=== PATIENT | male | born 1990 | race Caucasian/White ===

== ENCOUNTER 2017-04-25 14:09 | Emergency (ER) | payer MEDICAID, OTHER ==
[2017-04-25 14:15] VITALS: BP 137/87; PULSE 78; RESP 18; TEMP 98.6; O2SAT 98
--- NOTE | 2017-04-25 14:42 | ED PDOC ---
HPI: Male Pain Time Seen by Provider: 04/25/17 14:18 Chief Complaint (Nursing): Male Genitourinary Chief Complaint (Provider): Male Genitourinary History Per: Patient History/Exam Limitations: no limitations Onset/Duration Of Symptoms: Intermittent Episodes Additional Complaint(s): Sanjay Jordan is a 26 year old male, with no past medical history, who presents to the ED for the evaluation of intermittent right testicular pain ongoing for the past 4 years worsening for the past 3 days. Denies any dysuria, discharge, abdominal pain, or trauma. PMD: none provided Past Medical History Reviewed: Historical Data, Nursing Documentation, Vital Signs Vital Signs: Last Vital Signs Temp 98.6 F 04/25/17 14:13 Pulse 78 04/25/17 14:13 Resp 18 04/25/17 14:13 BP 137/87 04/25/17 14:13 Pulse Ox 98 04/25/17 14:13 - Medical History PMH: No Chronic Diseases - Surgical History Surgical History: No Surg Hx - Family History Family History: States: Unknown Family Hx - Allergies Allergies/Adverse Reactions: Allergies Allergy/AdvReac Type Severity Reaction Status Date / Time white chocolate Allergy ANGIOEDEMA Uncoded 04/25/17 14:16 Review of Systems ROS Statement: Except As Marked, All Systems Reviewed And Found Negative Gastrointestinal: Negative for: Abdominal Pain Genitourinary Male: Negative for: Dysuria, Penile Discharge, Other (trauma) Physical Exam - Reviewed Nursing Documentation Reviewed: Yes Vital Signs Reviewed: Yes - Physical Exam Appears: Positive for: Well, Non-toxic, No Acute Distress Head Exam: Positive for: ATRAUMATIC, NORMAL INSPECTION, NORMOCEPHALIC Skin: Positive for: Normal Color Eye Exam: Positive for: Normal appearance Cardiovascular/Chest: Positive for: Regular Rate, Rhythm Respiratory: Positive for: Normal Breath Sounds Male Genital Exam: Positive for: normal genitalia, other (No discharge. Questionable 2mm cyst on the superior right testical). Negative for: lesions ( No penile lesions), testicular tenderness (R), testicular tenderness (L) Neurologic/Psych: Positive for: Alert, Oriented - ECG O2 Sat by Pulse Oximetry: 98 (RA) Pulse Ox Interpretation: Normal Medical Decision Making Medical Decision Making: Initial Plan: * US testes duplex * urinalysis * reevaluation Scribe Attestation: Documented by Hyun Marmolejo acting as a scribe for Carlos Ruiz M.D. Provider Scribe Attestation: All medical record entries made by the Scribe were at my direction and personally dictated by me. I have reviewed the chart and agree that the record accurately reflects my personal performance of the history, physical exam, medical decision making, and the department course for this patient. I have also personally directed, reviewed, and agree with the discharge instructions and disposition. Disposition - Clinical Impression Clinical Impression: Hydrocele - Patient ED Disposition Is Patient to be Admitted: Transfer of Care - Disposition Referrals: Zeus Silveira MD [Medical Doctor] - 04/28/17 Disposition: Transfer of Care Disposition Time: 15:00 Condition: GOOD Additional Instructions: YOU CAN TAKE TYLENOL OR MOTRIN FOR PAIN CALL UROLOGIST TO SETUP A FOLLOW UP APPOINTMENT IN 1-2 WEEKS Instructions: Hydrocele (ED) Patient Signed Over To: Beatriz Ballard
--- NOTE | 2017-04-25 15:15 | ED PDOC ---
- ECG O2 Sat by Pulse Oximetry: 98 (RA) - Progress ED Course And Treament: 3p Rec'd endorsement from Dr Ruiz. Testicular pain pending US. Accession No. : [id number] Patient Name / ID : TARA MURILLO / [id number] Exam Date : 04/25/2017 16:51:37 ( Approved ) Study Comment : Sex / Age : M / 26Y Creator : Jojo Cohn MD Dictator : Jojo Cohn MD Simulation Developer : Freight Receiver : Jojo Cohn MD Approver2 : Report Date : 04/25/2017 17:24:47 My Comment : HISTORY: right testicular pain and mass TECHNIQUE: Realtime sonography through the scrotum with color and doppler flow. COMPARISON: None Available. FINDINGS: RIGHT TESTICLE: Measures 3.7 x 1.7 x 2.6 cm. Homogeneous echotexture. Blood flow is demonstrated. RIGHT EPIDIDYMIS: Epididymal head measures approximately 1.0 x 0.6 x 1.3 cm. 8 x 6 x 6 mm epididymal cyst. LEFT TESTICLE: Measures 3.9 x 1.9 x 2.9 cm. Homogeneous echotexture. Blood flow is demonstrated. LEFT EPIDIDYMIS: Epididymal head measures approximately 1.5 x 0.8 x 1.3 cm. 4 x 4 x 6 mm epididymal cyst. HYDROCELE: Bilateral hydroceles. VARICOCELE: None. OTHER FINDINGS: None. IMPRESSION: Small bilateral hydroceles. Tiny bilateral epididymal cysts. Disposition Counseled Patient/Family Regarding: Studies Performed, Diagnosis, Need For Followup - Clinical Impression Clinical Impression: Hydrocele - POA Present On Arrival: None - Disposition Referrals: Zeus Silveira MD [Medical Doctor] - 04/28/17 Disposition: Routine/Home Disposition Time: 17:00 Condition: GOOD Additional Instructions: YOU CAN TAKE TYLENOL OR MOTRIN FOR PAIN CALL UROLOGIST TO SETUP A FOLLOW UP APPOINTMENT IN 1-2 WEEKS Instructions: Hydrocele (ED)
[2017-04-25 15:40] LABS: RBC URINE 3 /hpf (0-3); URINE BILIRUBIN NEGATIVE (NEGATIVE); URINE BLOOD NEGATIVE (NEGATIVE); URINE COLOR YELLOW (YELLOW); URINE GLUCOSE (UA) NEG (Normal); URINE KETONE NEGATIVE (NEGATIVE); URINE LEUKOCYTE ESTERASE NEG Leu/uL (Negative); URINE PROTEIN 30 mg/dL (NEGATIVE); URINE UROBILINOGEN 0.2-1.0 mg/dL (0.2-1.0); WBC URINE 1 /hpf (0-5)
--- NOTE | 2017-04-25 17:26 | US ---
HISTORY: right testicular pain and mass TECHNIQUE: Realtime sonography through the scrotum with color and doppler flow. COMPARISON: None Available. FINDINGS: RIGHT TESTICLE: Measures 3.7 x 1.7 x 2.6 cm. Homogeneous echotexture. Blood flow is demonstrated. RIGHT EPIDIDYMIS: Epididymal head measures approximately 1.0 x 0.6 x 1.3 cm. 8 x 6 x 6 mm epididymal cyst. LEFT TESTICLE: Measures 3.9 x 1.9 x 2.9 cm. Homogeneous echotexture. Blood flow is demonstrated. LEFT EPIDIDYMIS: Epididymal head measures approximately 1.5 x 0.8 x 1.3 cm. 4 x 4 x 6 mm epididymal cyst. HYDROCELE: Bilateral hydroceles. VARICOCELE: None. OTHER FINDINGS: None. IMPRESSION: Small bilateral hydroceles. Tiny bilateral epididymal cysts.
== END 2017-04-25 17:52 | disposition home or self-care (01) ==
LOC: H.ER 14:09
DX: N43.3 Hydrocele, unspecified (principal)